=== PATIENT | female | born 1950 | race Caucasian/White ===

== ENCOUNTER → 2020-05-23 | Outpatient (CLI) | payer MEDICARE, OTHER ==
--- NOTE | 2020-05-23 12:59 | RAD ---
INDICATION: Osteoporosis screening. Postmenopausal screening COMPARISON: None. TECHNIQUE: Bone densitometry was performed through the lumbar spine and proximal femur. FINDINGS: Lumbar Spine: BMD: 1.04 T-Score: -1.2 Proximal Femur: BMD: 0.75 T-Score: -1.7 IMPRESSION: 1. Lumbar spine falls within the osteopenic range. 2. Proximal femur falls within the osteopenic range. Electronically signed by: Heri Esposito MD (05/23/2020 12:56 PM) [id number]
== END | disposition home or self-care (01) ==
LOC: DXRAD 10:30
PROVIDERS: ATTEND Family Medicine
DX: M85.88 Other specified disorders of bone density and structure, other site (principal)
CPT/HCPCS: 77080

== ENCOUNTER → 2020-08-21 | Outpatient (CLI) | payer MEDICARE, OTHER ==
--- NOTE | 2020-08-24 15:29 | RAD ---
BILATERAL SCREENING MAMMOGRAM, 3-D History: Routine screening. Comparison: 07/25/2017, 07/31/2018, 07/30/2019. Technique: MLO and CC digital tomosynthesis (3D) images obtained. Radiologist reviewed these images on dedicated workstation. Findings: Breast Tissue Density B : There are scattered areas of fibroglandular density. There are no dominant masses, suspicious microcalcifications, or architectural distortion. IMPRESSION: No mammographic evidence of malignancy. Recommend routine screening. BI-RADS category 1: Negative. The images were reviewed with computer-aided detection. Patient information is entered into reminder system with a target due date for the next screening mammogram. Mammography is the most sensitive method for finding small breast cancers, but it does not detect them all and is not a substitute for careful clinical examination. A negative mammogram does not negate a clinically suspicious finding and should not result in delay in biopsying a clinically suspicious abnormality. "Our facility is accredited by the [employer] Mammography Program." Electronically signed by: Augustus Couch MD (08/24/2020 3:26 PM) [email or web address]
== END ==
LOC: MAMMO 11:22
PROVIDERS: ATTEND Family Medicine
DX: Z12.31 Encounter for screening mammogram for malignant neoplasm of breast (principal)
CPT/HCPCS: 77063; 77067

== ENCOUNTER → 2021-12-14 | Outpatient (CLI) | payer MEDICARE, OTHER ==
--- NOTE | 2021-12-14 16:18 | RAD ---
Bilateral digital screening 2-D and 3-D (digital breast tomosynthesis) mammogram: Reason for examination: Routine screening. Comparison: Mammograms from 08/21/2020, the 07/30/2019, and 07/31/2018. Interpretation was made with the benefit of CAD. FINDINGS: Breast density: Category B. There are scattered areas of fibroglandular density. No suspicious breast mass, malignant appearing calcifications, or architectural distortion is seen. IMPRESSION: No evidence of malignancy. Assessment: BI-RADS 1. Negative. Recommendation: Routine screening mammograms. The patient will receive a letter with the results in the mail. Patient information will be entered i nto the mammography reminder system with a target recall date for the next mammogram. A reminder hope er will be generated. Electronically signed by: Zaria Echols MD (12/14/2021 4:16 PM) [id number]
== END ==
LOC: MAMMO 07:48
PROVIDERS: ATTEND Family Medicine
DX: Z12.31 Encounter for screening mammogram for malignant neoplasm of breast (principal)
CPT/HCPCS: 77063; 77067